=== PATIENT | female | born 1965 | race Caucasian/White ===

== ENCOUNTER 2017-10-18 09:33 | Outpatient (CLI) | payer BC | END 2017-10-18 09:34 | disposition home or self-care (01) | LOC: BICMAMMO 09:33 | PROVIDERS: ATTEND Obstetrics & Gynecology | DX: N60.01 Solitary cyst of right breast (principal) | CPT/HCPCS: 77066; G0279 ==

== ENCOUNTER 2018-10-02 09:53 | Outpatient (CLI) | payer BC ==
--- NOTE | 2018-10-02 13:01 | ULT ---
ABDOMINAL ULTRASOUND: INDICATIONS: Epigastric pain. FINDINGS: Images of the gallbladder reveal multiple small echogenic foci, which appear to be adherent to the ga llbladder wall. The largest of these measures 4 to 5 mm. They do not exhibit posterior shadowing. Multiple gallbladder polyps are suspected. The common duct is normal in caliber. The aorta and IVC are unremarkable as visualized. The pancreas is unremarkable as visualized. The l iver and spleen are unremarkable. The right kidney measures 10 cm in length. There is a hyperechoic mass in the superior pole of the r ight kidney, measuring approximately 6 to 8 mm. The left kidney measures approximately 10 cm in length and appears unremarkable. IMPRESSION: 1. Numerous echogenic foci, which appear to be adherent to the gallbladder wall. These do not exhib it posterior shadowing. Multiple gallbladder polyps are suspected, although nonshadowing stone is no t excluded. Follow-up ultrasound is recommended to confirm stability. Consider hepatobiliary scan t o assess gallbladder function. 2. Hyperechoic mass in the superior pole of the right kidney. Considerations include angiomyolipoma . CT abdomen is recommended for further characterization. POS: [facility]
== END 2018-10-02 09:54 | disposition home or self-care (01) ==
LOC: BICULT 09:53
PROVIDERS: ATTEND Internal Medicine Gastroenterology
DX: R10.13 Epigastric pain (principal); R11.0 Nausea; N28.89 Other specified disorders of kidney and ureter
CPT/HCPCS: 76700

== ENCOUNTER 2018-10-07 13:25 | Outpatient (CLI) | payer BC, OTHER ==
[~2018-10-07 13:25] MED LIST: Iopamidol 370 76% 100 ML VIAL ONE
--- NOTE | 2018-10-07 15:41 | CT ---
CT ABDOMEN AND PELVIS PERFORMED WITH INTRAVENOUS CONTRAST ENHANCEMENT: History: Abdominal pain. History of gallbladder polyp. Abdominal fullness, discomfort. Spot on right kidney noted on recent ultrasound. Comparison: Ultrasound dated 10-02-18. FINDINGS: The lung bases are clear of any infiltrative process. Lungs appear somewhat hyperexpanded. The liver, spleen, and pancreas regions as well as gallbladder region appear unremarkable on this exa mination. There are some subtle areas along the gallbladder wall which are compatible with the polyps noted on the ultrasound examination. Right and left adrenal glands are normal. There is a tiny hypodensity subcentimeter in size involving the upper pole of the right kidney. This appears to correspond in location to the ultrasound finding . It is difficult to characterize as it is only 3-4 mm, but probably an angiomyolipoma given the appe arance on ultrasound. The ultrasound lesion appears larger than the CT finding, but is felt to be in the proper location. No renal calculi. No significant periaortic or mesenteric adenopathy. CT OF PELVIS PERFORMED WITH CONTRAST ENHANCEMENT: The cecum is low lying and the lack of intraabdominal fat makes it very difficult to evaluate for an appendix. I do not see any signs of any inflammatory process. Endometrium is slightly thickened and t he uterus is heterogeneous which raises the possibility of fibroids. This would be better investigate d with ultrasound. Moderate amount of stool is seen within the right colon. The terminal ileum is sli ghtly distended in appearance but no mass identified. IMPRESSION: 1. Small gallbladder polyps. 2. 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 2. Heterogeneous appearing uterus. Endometrium is somewhat thickened in appearance for a patient of t his age and the uterine fundus is heterogeneous suggesting fibroids. Further investigation of these f indings with pelvic ultrasound would be recommended. POS: [facility]
== END 2018-10-07 13:26 | disposition home or self-care (01) ==
LOC: CT 13:25
PROVIDERS: ATTEND Internal Medicine Gastroenterology
DX: R93.5 Abnormal findings on diagnostic imaging of other abdominal regions, including retroperitoneum (principal); K82.4 Cholesterolosis of gallbladder; R93.421 Abnormal radiologic findings on diagnostic imaging of right kidney; R93.89 Abnormal findings on diagnostic imaging of other specified body structures
CPT/HCPCS: 74177

== ENCOUNTER 2018-11-28 09:32 | Outpatient (CLI) | payer BC ==
--- NOTE | 2018-12-02 13:25 | MMO ---
Bilateral MAMMO Bilat Screen [facility]. CLINICAL HISTORY: Patient is 53 years old and is seen for screening. The patient has no family history of breast cancer. The patient has no personal history of cancer. The patient has a history of right Cyst Aspiration in July, - benign. VIEWS: The views performed were: bilateral craniocaudal with tomosynthesis and bilateral mediolateral oblique with tomosynthesis. FILMS COMPARED: The present examination has been compared to prior imaging studies performed at [facility] on 06/22/2016, 07/06/2016 and 10/18/2017. MAMMOGRAM FINDINGS: The breasts are heterogeneously dense, which could obscure a lesion on mammography. There are stable benign appearing calcifications seen in both breasts. There are no suspicious masses, suspicious calcifications, or new areas of architectural distortion. IMPRESSION: THERE IS NO MAMMOGRAPHIC EVIDENCE OF MALIGNANCY. A ROUTINE FOLLOW-UP MAMMOGRAM IN 1 YEAR IS RECOMMENDED. THE RESULTS OF THIS EXAM WERE SENT TO THE PATIENT. ACR BI-RADS Category 2 - Benign finding MAMMOGRAPHY NOTE: 1. A negative mammogram report should not delay a biopsy if a dominant of clinically suspicious mass is present. 2. Approximately 10% to 15% of breast cancers are not detected by mammography. 3. Adenosis and dense breasts may obscure an underlying neoplasm.
== END 2018-11-28 09:33 | disposition home or self-care (01) ==
LOC: BICMAMMO 09:32
PROVIDERS: ATTEND Obstetrics & Gynecology
DX: Z12.31 Encounter for screening mammogram for malignant neoplasm of breast (principal)
CPT/HCPCS: 77063; 77067

== ENCOUNTER 2019-02-17 13:34 | Outpatient (CLI) | payer BC ==
--- NOTE | 2019-02-17 14:13 | ULT ---
US Neck Soft Tissue History: Neck pain after iodine treatment for Graves' disease Comparison: None. Findings: No abnormal mass. Mild hypervascularity of the thyroid. No adenopathy. Impression: No abnormal mass. Hypervascular thyroid can be seen with Graves' disease.
== END 2019-02-17 13:35 | disposition home or self-care (01) ==
LOC: BICULT 13:34
PROVIDERS: ATTEND Family Medicine
DX: M54.2 Cervicalgia (principal); R22.1 Localized swelling, mass and lump, neck; E07.9 Disorder of thyroid, unspecified
CPT/HCPCS: 76536

== ENCOUNTER 2019-08-28 07:55 | Outpatient (CLI) | payer BC ==
--- NOTE | 2019-08-28 09:42 | ULT ---
GALLBLADDER ULTRASOUND: Date: 08/28/19 HISTORY: Follow-up CT and abdominal ultrasound. COMPARISON: CT scan dated 10/07/18 and abdominal ultrasound dated 10/02/18. FINDINGS: Liver echogenicity is unremarkable. Multiple nonshadowing, nonmobile nodular opacities along the wall of the gallbladder most consistent with stable polyps. Stable hyperechoic focus in the upper pole of the right kidney, evidence for a small angiomyolipoma. No right renal hydronephrosis. Visualized house creas is unremarkable. IMPRESSION: 1. Stable multiple polyps within the gallbladder. 2. Stable focal hyperechogenicity in the upper pole of the right kidney, evidence for a stable angio myolipoma at approximately 0.7 cm. POS: [facility]
== END 2019-08-28 07:56 | disposition home or self-care (01) ==
LOC: BICULT 07:55
PROVIDERS: ATTEND Physician Assistant Medical
DX: K82.4 Cholesterolosis of gallbladder (principal); R93.3 Abnormal findings on diagnostic imaging of other parts of digestive tract; D17.71 Benign lipomatous neoplasm of kidney; N28.89 Other specified disorders of kidney and ureter
CPT/HCPCS: 76705

== ENCOUNTER 2020-07-01 12:54 | Outpatient (CLI) | payer BC ==
--- NOTE | 2020-07-01 14:02 | CT ---
EXAM: CT Abdomen Pelvis W Con PROVIDED CLINICAL HISTORY: Right upper quadrant pain COMPARISON: 10/07/2018 FINDINGS: The visualized lung bases are free of significant opacity. Stable subcentimeter foci of diminished attenuation involving the right and left hepatic lobes, too s mall to definitively characterize but compatible with cysts. 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 The solid abdominal organs demonstrate an otherwise unremarkable CT appearance. The gallbladder is decompressed. There is no evidence for appendicitis. There is no bowel dilatation, inflammatory fat stranding, free fluid or lymph node enlargement apparent. There is moderate colonic and rectal fecal retention. The regional major vascular structures appear unremarkable. The osseous structures demonstrate no concerning lytic or blastic lesions. Stable benign-appearing sc lerotic foci within the L2 and L4 vertebral bodies. IMPRESSION: No evidence for an acute process.
[2020-07-01] MEDS ORDERED: Iopamidol-370 76% 500 ML 1 ML ONE (15:06)
== END 2020-07-01 12:55 | disposition home or self-care (01) ==
LOC: BICCT 12:54
PROVIDERS: ATTEND Family Medicine
DX: R10.11 Right upper quadrant pain (principal); R63.6 Underweight; K82.4 Cholesterolosis of gallbladder; D17.71 Benign lipomatous neoplasm of kidney
CPT/HCPCS: 74177; Q9967

== ENCOUNTER 2020-08-11 06:19 | Outpatient (CLI) | payer BC ==
[2020-08-11 09:07] LABS: #Eosinphils 0.2 10x3/uL (0.0-0.5); #Monocytes 0.5 10x3/uL (0.0-1.1); #Neutrophils 2.5 10x3/uL (1.5-8.4); %Basophils 0.6 % (0.0-2.0); %Eosinophils 4.3 % (0.0-6.0); %Lymphocytes 38.8 % (18.0-47.0); %Monocytes 8.5 % (0.0-10.0); %Neutrophils 47.4 % (40.0-75.0); Hemoglobin 13.9 g/dL (12.0-16.0); Mean Corpuscular HGB CONC 32.5 G/DL (32.0-36.0); Mean Corpuscular Hemoglobin 30.6 PG (27.0-33.0); Mean Corpuscular Volume 94.3 fl (80.0-100.0); Mean Platelet Volume 9.3 fl (7.4-10.4); Platelet Count 268 10x3/uL (130-400); RBC Distribution Width 12.7 % (11.5-14.5); Red Blood Cell (RBC) Count 4.54 10x6/uL (3.90-5.20); White Blood Cell (WBC) Count 5.3 10x3/uL (4.5-11.0)
[2020-08-11 09:38] LABS: ALT (SGPT) 16 U/L (8-55); AST (SGOT) 22 U/L (5-34); Albumin 4.4 g/dL (3.5-5.0); Alkaline Phosphatase 64 U/L (40-110); Anion Gap 14 mmol/L (10-20); BUN (Urea Nitrogen) 13 mg/dL (9.8-20.1); Bilirubin, Direct 0.1 mg/dL (0.1-0.3); Bilirubin, Total 0.3 mg/dL (0.2-1.2); Calc. Creatinine Clearance 0 mL/min (70-130); Calcium 8.8 mg/dL (7.8-10.44); Carbon Dioxide 25 mmol/L (22-29); Chloride 106 mmol/L (98-107); Glucose 106 mg/dL (70-105); Potassium 3.9 mmol/L (3.5-5.1); Protein, Total 7.5 g/dL (6.0-8.3); Sodium 141 mmol/L (136-145)
== END 2020-08-11 06:20 | disposition home or self-care (01) ==
LOC: LABBT 06:19
PROVIDERS: ATTEND Surgery
DX: Z01.812 Encounter for preprocedural laboratory examination (principal); K82.4 Cholesterolosis of gallbladder
CPT/HCPCS: 80048; 80076; 85025

== ENCOUNTER 2020-08-16 10:09 | Day surgery (SDC) | payer BC ==
[2020-08-12 14:14] VITALS: BMI 17.4
[2020-08-16] MEDS ORDERED: Dexamethasone 20 MG/5 ML VIAL ONE (11:03)
[2020-08-16] MEDS ORDERED: Lidocaine 1% PF 5 ML VIAL ONE (11:03)
[2020-08-16] MEDS ORDERED: Rocuronium Bromide 10 MG/ML (10ML VIAL) ONE (11:03)
[2020-08-16] MEDS ORDERED: PROPOFOL 200 MG/20 ML VIAL ONE (11:03)
[2020-08-16] MEDS ORDERED: Ondansetron PF 4 MG/2 ML Vial ONE (11:03)
[2020-08-16] MEDS ORDERED: Glycopyrrolate 0.2 MG/ML 5 ML SYRINGE ONE (11:03)
[2020-08-16] MEDS ORDERED: Ketorolac Tromethamine 30 MG/ML VIAL ONE (11:03)
[2020-08-16] MEDS ORDERED: Lidocaine 1% w/Epinephrine 1:100K 20 ML VIAL ONE (11:35)
[2020-08-16] MEDS ORDERED: Bupivacaine 0.25% HCL 30 ML VIAL ONE (11:35)
[2020-08-16] MEDS ORDERED: Fentanyl 100 MCG/2 ML VIAL ONE ×2 (12:04→13:58)
[2020-08-16] MEDS ORDERED: Midazolam HCl 2 mg/2 ml Vial ONE (12:04)
[2020-08-16] MEDS ORDERED: Promethazine HCl 25 MG/ML VIAL ONE (14:30)
[2020-08-16] MEDS ORDERED: Ondansetron ODT 4 MG TAB ONE (16:42)
--- NOTE | 2020-08-16 19:06 | OP ---
DATE OF PROCEDURE: 08/16/2020 PREOPERATIVE DIAGNOSIS: Chronic cholecystitis. POSTOPERATIVE DIAGNOSIS: Chronic cholecystitis. PROCEDURE PERFORMED: Laparoscopic cholecystectomy. ANESTHESIA: General. ESTIMATED BLOOD LOSS: Minimal. COMPLICATIONS: None. SPECIMEN: Gallbladder. FINDINGS: Chronic cholecystitis. DESCRIPTION OF PROCEDURE: The patient was taken to the operating room and laid supine on the operating room table. After general anesthetic was obtained, the abdomen was prepped and draped in a sterile fashion. A curved incision was made below the umbilicus. Cautery was used to dissect down to the umbilical fascia. Umbilical fascia was incised and held up using a Jose. The abdominal cavity was entered using a Pauline clamp. Holding stitch of Vicryl was placed on each side of the fascia. Jack trocar was placed. High-flow pneumoperitoneum was obtained. An upper midline 5 mm port and 2 right upper quadrant 5 mm ports were placed under direct camera visualization. The gallbladder was retracted from the gallbladder fossa. The peritoneum of the gallbladder was opened anteriorly and posteriorly. The critical view triangle was seen showing only the cystic duct and cystic artery branching from medial to lateral. There were no other branching structures. Two clips were placed proximally on the cystic duct and one laterally. It was cut using laparoscopic scissors. The cystic artery was taken in the same way. Electrocautery was then used to dissect the gallbladder out of the gallbladder fossa. The gallbladder was placed in an Endo catch bag and brought out through the Jack. There was no bleeding or bile in the liver bed. The cystic duct stump and cystic artery stump were intact, without evidence of extravasation or bleeding. All port sites were infiltrated using local anesthesia. All ports were removed under camera visualization. Pneumoperitoneum was let down. The Vicryl was used to close the fascial defect below the umbilicus. All incisions were irrigated and closed using 4-0 Monocryl and Dermabond. The patient was en route to Recovery in stable condition. All instrument counts, needle counts and lap counts were correct. Job ID: [id number]
== END 2020-08-16 17:15 | disposition home or self-care (01) ==
LOC: SDC 10:09
PROVIDERS: ATTEND Surgery
PROC: 0FT44ZZ Resection of Gallbladder, Percutaneous Endoscopic Approach (ICD-10-PCS; principal; 2020-08-16)
DX: K81.1 Chronic cholecystitis (principal); K21.9 Gastro-esophageal reflux disease without esophagitis; E03.9 Hypothyroidism, unspecified; J30.2 Other seasonal allergic rhinitis; Z79.899 Other long term (current) drug therapy; Z86.19 Personal history of other infectious and parasitic diseases; Z88.1 Allergy status to other antibiotic agents
CPT/HCPCS: 88304; J0690; J1100; J1885; J2250; J2405; J2550; J2704; J3010; Q0162; S0020

== ENCOUNTER 2021-02-21 12:14 | Outpatient (CLI) | payer BC | END 2021-02-21 12:15 | disposition home or self-care (01) | LOC: BICRAD 12:14 | PROVIDERS: ATTEND Physician Assistant Medical | DX: K59.00 Constipation, unspecified (principal) | CPT/HCPCS: 74018 ==

== ENCOUNTER 2021-06-14 08:54 | Outpatient (CLI) | payer BC | END 2021-06-14 08:55 | disposition home or self-care (01) | LOC: BICMAMMO 08:54 | PROVIDERS: ATTEND Student in an Organized Health Care Education/Training Program | DX: Z13.820 Encounter for screening for osteoporosis (principal); N95.1 Menopausal and female climacteric states; M81.0 Age-related osteoporosis without current pathological fracture; M85.851 Other specified disorders of bone density and structure, right thigh; M85.852 Other specified disorders of bone density and structure, left thigh | CPT/HCPCS: 77080 ==

== ENCOUNTER 2022-11-21 14:09 | Outpatient (CLI) | payer BC ==
[~2022-11-21 14:09] MED LIST changes: -Iopamidol 370 76% 100 ML VIAL ONE; +Iopamidol-370 76% 500 ML 1 ML ONE
== END 2022-11-21 14:10 | disposition home or self-care (01) ==
LOC: BICCT 14:09
PROVIDERS: ATTEND Urology
DX: D17.71 Benign lipomatous neoplasm of kidney (principal); N28.89 Other specified disorders of kidney and ureter
CPT/HCPCS: 74178; Q9967

== ENCOUNTER 2024-01-31 11:15 | Outpatient (CLI) | payer BC | END 2024-01-31 11:16 | disposition home or self-care (01) | LOC: BICMAMMO 11:15 | PROVIDERS: ATTEND Student in an Organized Health Care Education/Training Program | DX: Z13.820 Encounter for screening for osteoporosis (principal); M81.0 Age-related osteoporosis without current pathological fracture; M85.851 Other specified disorders of bone density and structure, right thigh; M85.852 Other specified disorders of bone density and structure, left thigh | CPT/HCPCS: 77080 ==

== ENCOUNTER 2024-03-26 14:28 | Outpatient (CLI) | payer BC, SELFPAY | END 2024-03-26 14:29 | disposition home or self-care (01) | LOC: BICCT 14:28 | PROVIDERS: ATTEND Internal Medicine | DX: E78.49 Other hyperlipidemia (principal) | CPT/HCPCS: 75571 ==

== ENCOUNTER 2025-08-24 14:29 | Outpatient (CLI) | payer BC | END 2025-08-24 14:30 | disposition home or self-care (01) | LOC: BICRAD 14:29 | PROVIDERS: ATTEND Physician Assistant | DX: R07.9 Chest pain, unspecified (principal) | CPT/HCPCS: 71046 ==